=== PATIENT | male | born 1965 | race Two or more races ===

== ENCOUNTER 2022-05-27 00:07 | Inpatient (IN) | payer MEDICAID, OTHER ==
[~2022-05-27] VITALS: Ht 152.4 cm; Wt 96.0 kg
[2022-05-27 01:53] LABS: Hematocrit 43.3 % (41.0-53.0); Hemoglobin 14.7 g/dL (13.5-17.5); Mean Corpuscular Hemoglobin 33.3 pg (28.0-32.0); Mean Corpuscular Volume 98.1 fL (80.0-100.0); Red Blood Cells 4.41 10^6/uL (4.5-5.90); Red Cell Distribution Width 13.3 % (11.8-14.3); White Blood Cell 10.3 10^3/uL (4.4-10.8)
[2022-05-27 02:01] LABS: Basophils % (manual) 0 (0.0-2.0); Blast Cells 0; Metamyelocytes % 0; Myelocytes % 0; Promyelocytes % 0; Reactive Lymphocytes 0
[2022-05-27 02:10] LABS: Albumin 4.1 g/dL (3.4-5.0); Calcium 9.2 mg/dL (8.5-10.1); Potassium 3.9 mmol/L (3.5-5.1)
[2022-05-27 02:13] LABS: BUN/Creatinine Ratio 17.1; Bilirubin, Total 0.6 mg/dL (0.2-1.0); CRP High Sensitivity 0.03 mg/dL (< 0.3)
[2022-05-27] MEDS ORDERED: KETOROLAC TROMETH 60MG/2ML VIAL IM ONE (02:15)
[2022-05-27 02:47] LABS: Band Neutrophils % (manual) 17; Eosinophils % (manual) 1 (0-7); Lymphocytes % (manual) 8 (10.0-50.0); Monocytes % (manual) 2 (0-12)
[2022-05-27] MEDS ORDERED: SODIUM CHLORIDE 0.9% 1,000 ML IV ONE (03:15)
[2022-05-27 03:32] LABS: Urine Bacteria FEW /hpf (None Seen); Urine Blood TRACE /uL (Negative); Urine Mucus FEW (None Seen); Urine Specific Gravity 1.031 (1.001-1.035); Urine WBC 82 /hpf (0 - 3)
[2022-05-27 03:38] LABS: Alcohol, Urine < 3.0 mg/dL (0-10); Amphetamine Screen, Urine NEGATIVE (NEGATIVE); Barbiturate Scree,Urine NEGATIVE (NEGATIVE); Benzodiazephine Screen, Urine NEGATIVE (NEGATIVE); Cannabinoid Screen, Urine NEGATIVE (NEGATIVE); Cocaine Screen, Urine NEGATIVE (NEGATIVE); Opiate Scree,Urine NEGATIVE (NEGATIVE); Phencyclidine Screen, Urine NEGATIVE (NEGATIVE)
[2022-05-27] MEDS ORDERED: KETOROLAC TROMETH 30 MG/ML 1ML VIAL IV PRN (09:30)
[2022-05-27] MEDS ORDERED: cefTRIAXone 1GM/50ML D5W 50 ML IV ONE (09:30)
[2022-05-27] MEDS: SODIUM CHLORIDE 0.9% 1,000 ML IV SCH ×2 (09:44→18:00)
[2022-05-27] MEDS ORDERED: DEXTROSE (50%) 50ML SYRG IV PRN (10:00)
[2022-05-27 10:09] LABS: Cholesterol 108 mg/dL (< 200); HDL Cholesterol 44 mg/dL (40-59); LDL Cholesterol 47 mg/dL (< 100); Triglycerides 96 mg/dL (< 150)
[2022-05-27] MEDS: ASPirin 81 mg TAB PO SCH (10:16)
[2022-05-27] MEDS ORDERED: MANNITOL FTV 25% 12.5 GM/50 ML 50 ML IV ONE (10:45)
[2022-05-27] MEDS: ACCU-CHEK COMFORT CURVE STRIP VI SCH ×3 (11:39→22:39)
[2022-05-27] MEDS: InsuLIN REG 1unit/0.01ml Soln (100units/ml) SC SCH ×3 (11:42→22:37)
[2022-05-27] MEDS: ONDANSETRON HCL 4 MG/2 ML VIAL IV PRN (12:26)
[2022-05-27] MEDS: MORPHINE SULFATE INJ 2 MG/ml SYRG IV PRN ×2 (12:32→23:00)
[2022-05-27] MEDS ORDERED: ACETAMINOPHEN 325 MG TAB PO ONE (13:25)
[2022-05-27] MEDS ORDERED: PROMETHAZINE HCL 25 MG/ML 1ML IV ONE (13:30)
[2022-05-27] MEDS: ACETAMINOPHEN 325 MG TAB PO PRN (14:03)
[2022-05-27] MEDS ORDERED: SODIUM CHLORIDE 0.9% 2,000 ML IV ONE ×3 (18:30→18:45)
[2022-05-27 19:28] LABS: Lactic Acid w/Reflex 4.1 mmol/L (0.4-2.0)
[2022-05-27] MEDS: SOD CHL 0.45% 1,000 ML IV SCH (19:38)
[2022-05-27] MEDS ORDERED: OMEP20TA PO (20:58)
[2022-05-27] MEDS ORDERED: METF-370 PO (20:58)
[2022-05-27] MEDS ORDERED: EMPA1TAB PO (20:58)
[2022-05-27] MEDS ORDERED: CHOL20007 PO (20:58)
[2022-05-27] MEDS ORDERED: ONDA-144 PO (20:58)
[2022-05-27] MEDS ORDERED: BENZ100C97 PO (20:58)
[2022-05-27] MEDS ORDERED: ATOR40TA52 PO (20:58)
[2022-05-27] MEDS ORDERED: LISI20TA28 PO (20:58)
[2022-05-27 22:00] VITALS: BP 100/73
[2022-05-27] MEDS: ATORVASTATIN 20 MG TAB PO SCH (22:39)
[2022-05-28] VITALS (46 sets, daily range): BP systolic 83–221; BP diastolic 48–111
[2022-05-28] MEDS ORDERED: ALBUTEROL SULF 2.5 MG/0.5ML(0.5%) NEB SOLN ONE (00:11)
[2022-05-28] MEDS ORDERED: IPRATROPIUM BROM 0.5 MG/2.5ML INH SOL ONE (00:11)
[2022-05-28] MEDS: ACETAMINOPHEN 325 MG TAB PO PRN ×2 (00:18→08:28)
[2022-05-28] MEDS ORDERED: dilTIAZem 25 MG/5 ML VIAL IV ONE (00:30)
[2022-05-28] MEDS ORDERED: dilTIAZem HCL 50 MG/10 ML VIAL IV ONE (00:44)
[2022-05-28] MEDS: SOD CHL 0.45% 1,000 ML IV SCH ×2 (02:30→12:24)
[2022-05-28 06:37] LABS: Potassium 3.7 mmol/L (3.5-5.1)
[2022-05-28] MEDS: InsuLIN REG 1unit/0.01ml Soln (100units/ml) SC SCH ×3 (06:41→22:00)
[2022-05-28] MEDS: ACCU-CHEK COMFORT CURVE STRIP VI SCH ×3 (06:42→22:00)
[2022-05-28 06:43] LABS: BUN/Creatinine Ratio 15.3
[2022-05-28 06:46] LABS: Basophils # (auto) 0 10 ^3/uL (0-0.2); Basophils % (auto) 0.1 % (0.0-2.0); Eosinophils # (auto) 0.1 10 ^3/uL (0-0.8); Eosinophils % (auto) 0.5 % (0.0-7.0); Hematocrit 38.6 % (41.0-53.0); Hemoglobin 12.9 g/dL (13.5-17.5); Lymphocytes # (auto) 0.4 10 ^3/uL (0.4-5.4); Lymphocytes % (auto) 3.4 % (10.0-50.0); Mean Corpuscular Hemoglobin 32.9 pg (28.0-32.0); Mean Corpuscular Hgb Conc. 33.5 g/dL (32.0-36.0); Mean Corpuscular Volume 98.2 fL (80.0-100.0); Monocytes # (auto) 0.3 10 ^3/uL (0-1.3); Monocytes % (auto) 2.5 % (0.0-12.0); Neutrophils # (auto) 10.1 10 ^3/uL (1.6-8.6); Neutrophils % (auto) 93.5 % (37.0-80.0); Nucleated Red Blood Cells % 0.1 %; Red Blood Cells 3.93 10^6/uL (4.5-5.90); Red Cell Distribution Width 13.6 % (11.8-14.3); Total Protein 5.7 g/dL (6.4-8.2); White Blood Cell 10.8 10^3/uL (4.4-10.8)
[2022-05-28] MEDS: ASPirin 81 mg TAB PO SCH (08:28)
[2022-05-28] MEDS ORDERED: cefTRIAXone 1GM/50ML D5W 50 ML IV SCH (09:00)
[2022-05-28] MEDS ORDERED: SODIUM CHLORIDE 0.9% 1,000 ML IV ONE (10:15)
[2022-05-28] MEDS: NOREPINEPHRINE 8 MG/250ML KIT 250 ML IV SCH (11:00)
[2022-05-28 11:26] LABS: Lactic Acid w/Reflex 6.4 mmol/L (0.4-2.0)
[2022-05-28 11:47] LABS: INR 1.41 (0.9-1.15)
[2022-05-28] MEDS ORDERED: MANNITOL 20% SOLN 100 gm/500ml 200 ML IV ONE (13:15)
[2022-05-28] MEDS: ALBUMIN 25% 100 ML IV SCH ×2 (13:15→21:15)
[2022-05-28] MEDS ORDERED: SODIUM CHLORIDE 0.9% 1,000 ML IV SCH (13:15)
[2022-05-28] MEDS ORDERED: PHYTONADIONE (VIT K)10 MG/ML 1ML VIAL SUBCUT ONE (13:15)
[2022-05-28] MEDS: PIPERACILLIN-TAZOB 2.25GM 50 ML IV SCH ×2 (14:24→20:00)
[2022-05-28] MEDS ORDERED: FUROSEMIDE 40 MG/4 ML VIAL IV ONE (16:00)
[2022-05-28] MEDS ORDERED: hydrALAZINE HCL 20 MG/ML VL ONE (16:12)
[2022-05-28] MEDS ORDERED: ALBUTEROL SULF 2.5 MG/0.5ML(0.5%) NEB SOLN NEB PRN (16:15)
[2022-05-28] MEDS ORDERED: IPRATROPIUM BROM 0.5 MG/2.5ML INH SOL NEB PRN (16:15)
[2022-05-28] MEDS ORDERED: hydrALAZINE HCL 20 MG/ML VL IV PRN (16:15)
[2022-05-28] MEDS ORDERED: hydrALAZINE HCL 20 MG/ML VL IV ONE (16:15)
[2022-05-28] MEDS: MORPHINE SULFATE INJ 2 MG/ml SYRG IV PRN ×2 (16:29→22:56)
[2022-05-28] MEDS: TAMSULOSIN HYDROCHLORIDE 0.4 MG CAP PO SCH (18:00)
[2022-05-28 18:10] LABS: Lactic Acid w/Reflex 4.8 mmol/L (0.4-2.0)
[2022-05-28] MEDS ORDERED: LORazepam 2MG/ML-1ML VIAL IV PRN (20:30)
[2022-05-28] MEDS: ATORVASTATIN 20 MG TAB PO SCH (22:00)
[2022-05-29] VITALS (35 sets, daily range): BP systolic 113–157; BP diastolic 69–91
[2022-05-29] MEDS: PIPERACILLIN-TAZOB 2.25GM 50 ML IV SCH ×4 (02:00→21:19)
[2022-05-29] MEDS: ALBUMIN 25% 100 ML IV SCH (05:15)
[2022-05-29 06:00] LABS: BUN/Creatinine Ratio 15.6; Calcium 8.2 mg/dL (8.5-10.1); INR 1.11 (0.9-1.15); Partial Thromboplastin Time 40.3 sec (24.6-33.4); Potassium 3.9 mmol/L (3.5-5.1)
[2022-05-29 06:10] LABS: Lactic Acid w/Reflex 2.1 mmol/L (0.4-2.0)
[2022-05-29] MEDS: InsuLIN REG 1unit/0.01ml Soln (100units/ml) SC SCH ×4 (06:37→21:46)
[2022-05-29] MEDS: ACCU-CHEK COMFORT CURVE STRIP VI SCH ×4 (06:37→21:19)
[2022-05-29 07:51] LABS: Basophils % (auto) 0.2 % (0.0-2.0); Eosinophils % (auto) 2.2 % (0.0-7.0); Lymphocytes % (auto) 4.1 % (10.0-50.0); Monocytes % (auto) 2.7 % (0.0-12.0); Neutrophils % (auto) 90.8 % (37.0-80.0); White Blood Cell 20.1 10^3/uL (4.4-10.8)
[2022-05-29 07:52] LABS: Basophils # (auto) 0 10 ^3/uL (0-0.2); Eosinophils # (auto) 0.4 10 ^3/uL (0-0.8); Hematocrit 38.7 % (41.0-53.0); Hemoglobin 13.1 g/dL (13.5-17.5); Lymphocytes # (auto) 0.8 10 ^3/uL (0.4-5.4); Mean Corpuscular Hgb Conc. 33.8 g/dL (32.0-36.0); Mean Corpuscular Volume 97.8 fL (80.0-100.0); Monocytes # (auto) 0.5 10 ^3/uL (0-1.3); Neutrophils # (auto) 18.3 10 ^3/uL (1.6-8.6); Red Blood Cells 3.96 10^6/uL (4.5-5.90); Red Cell Distribution Width 14.1 % (11.8-14.3)
[2022-05-29] MEDS: ONDANSETRON HCL 4 MG/2 ML VIAL IV PRN (09:14)
[2022-05-29] MEDS: ASPirin 81 mg TAB PO SCH (10:00)
[2022-05-29] MEDS: SODIUM CHLORIDE 0.9% 1,000 ML IV SCH ×2 (10:51→22:30)
[2022-05-29] MEDS ORDERED: MIDAZOLAM HCL 2MG/2ML 2ml VIAL (1mg/ml) ONE (12:55)
[2022-05-29] MEDS ORDERED: fentaNYL CITRATE 100 MCG/2 ML VL ONE (12:55)
[2022-05-29] MEDS ORDERED: LIDOCAINE 2%HCL (LOCAL ANESTH.) INJ 10ml MDV ONE (12:56)
[2022-05-29] MEDS ORDERED: IOHEXOL 350 MG/ML 100ML IJ ONE (13:05)
[2022-05-29] MEDS ORDERED: IODIXANOL 320MG/ML 100ML BTL IV ONE (13:16)
[2022-05-29] MEDS: MORPHINE SULFATE INJ 2 MG/ml SYRG IV PRN ×2 (16:24→21:48)
[2022-05-29] MEDS: TAMSULOSIN HYDROCHLORIDE 0.4 MG CAP PO SCH (17:25)
[2022-05-29] MEDS: ATORVASTATIN 20 MG TAB PO SCH (21:18)
[2022-05-30] VITALS: BP 147/76
[2022-05-30] MEDS: PIPERACILLIN-TAZOB 2.25GM 50 ML IV SCH ×3 (02:00→15:50)
[2022-05-30 06:35] VITALS: BP 141/84
[2022-05-30] MEDS: NOREPINEPHRINE 8 MG/250ML KIT 250 ML IV SCH ×2 (06:40→11:00)
[2022-05-30] MEDS: ACCU-CHEK COMFORT CURVE STRIP VI SCH ×3 (06:42→18:04)
[2022-05-30 06:44] LABS: Basophils # (auto) 0.1 10 ^3/uL (0-0.2); Basophils % (auto) 0.4 % (0.0-2.0); Eosinophils # (auto) 0.1 10 ^3/uL (0-0.8); Eosinophils % (auto) 0.6 % (0.0-7.0); Hematocrit 36.6 % (41.0-53.0); Hemoglobin 12.2 g/dL (13.5-17.5); Lymphocytes # (auto) 0.7 10 ^3/uL (0.4-5.4); Mean Corpuscular Hemoglobin 32.3 pg (28.0-32.0); Mean Corpuscular Hgb Conc. 33.3 g/dL (32.0-36.0); Mean Corpuscular Volume 97.1 fL (80.0-100.0); Monocytes # (auto) 0.7 10 ^3/uL (0-1.3); Monocytes % (auto) 5.9 % (0.0-12.0); Neutrophils # (auto) 10.6 10 ^3/uL (1.6-8.6); Neutrophils % (auto) 87.1 % (37.0-80.0); Red Blood Cells 3.77 10^6/uL (4.5-5.90); Red Cell Distribution Width 14.1 % (11.8-14.3); White Blood Cell 12.2 10^3/uL (4.4-10.8)
[2022-05-30] MEDS: InsuLIN REG 1unit/0.01ml Soln (100units/ml) SC SCH ×3 (06:51→18:04)
[2022-05-30 06:57] LABS: INR 1.03 (0.9-1.15); Partial Thromboplastin Time 31.3 sec (24.6-33.4)
[2022-05-30 07:06] LABS: Albumin 2.5 g/dL (3.4-5.0); BUN/Creatinine Ratio 19.7; Calcium 8.3 mg/dL (8.5-10.1); Potassium 4.1 mmol/L (3.5-5.1)
[2022-05-30 07:08] LABS: Total Protein 6.2 g/dL (6.4-8.2)
[2022-05-30 08:00] VITALS: BP 146/80
[2022-05-30 10:00] VITALS: BP 143/80
[2022-05-30] MEDS: ASPirin 81 mg TAB PO SCH (10:00)
[2022-05-30] MEDS: SODIUM CHLORIDE 0.9% 1,000 ML IV SCH (11:08)
[2022-05-30] MEDS ORDERED: METOPROLOL TARTRATE 25 MG TAB PO ONE (11:45)
[2022-05-30] MEDS ORDERED: SODIUM CHLORIDE 0.9% 1,000 ML IV SCH (11:45)
[2022-05-30] MEDS ORDERED: HYDROcodone-ACET 5/325MG TAB PO PRN (12:45)
[2022-05-30] MEDS ORDERED: TAM04C PO (13:13)
[2022-05-30] MEDS ORDERED: CIPR500T4 PO (13:13)
[2022-05-30] MEDS ORDERED: HYDR-4902 PO (13:13)
[2022-05-30] MEDS ORDERED: MET25T PO (13:13)
[2022-05-30] MEDS ORDERED: ATOR40TA52 PO (13:13)
[2022-05-30 16:17] VITALS: BP 158/80
[2022-05-30] MEDS: TAMSULOSIN HYDROCHLORIDE 0.4 MG CAP PO SCH (18:37)
[2022-05-30] MEDS ORDERED: METOPROLOL TARTRATE 25 MG TAB PO SCH (22:00)
[2022-05-30] MEDS ORDERED: CIPROFLOXACIN HCL 500 MG TAB PO SCH (22:00)
== END 2022-05-30 18:45 | disposition home health service (06) | DRG 463 ==
LOC: ER 00:07 → TELE 09:39 → TELE-WESTW 19:49 → DOU IN ICU 05-28 10:22
PROVIDERS: ADMIT Registered Nurse; ATTEND Hospitalist
PROC: 0T9130Z Drainage of Left Kidney with Drainage Device, Percutaneous Approach (ICD-10-PCS; principal; 2022-05-29)
PROC: BT42ZZZ Ultrasonography of Left Kidney (ICD-10-PCS; 2022-05-29)
PROC: BT121ZZ Fluoroscopy of Left Kidney using Low Osmolar Contrast (ICD-10-PCS; 2022-05-29)
DX: N13.6 Pyonephrosis (principal); N17.9 Acute kidney failure, unspecified; N20.1 Calculus of ureter; E86.0 Dehydration; E11.9 Type 2 diabetes mellitus without complications; E78.5 Hyperlipidemia, unspecified; I10 Essential (primary) hypertension; E66.01 Morbid (severe) obesity due to excess calories; R31.9 Hematuria, unspecified; R80.9 Proteinuria, unspecified; Z20.822 Contact with and (suspected) exposure to COVID-19; Z86.73 Personal history of transient ischemic attack (TIA), and cerebral infarction without residual deficits; Z68.41 Body mass index [BMI] 40.0-44.9, adult; Z79.84 Long term (current) use of oral hypoglycemic drugs
CPT/HCPCS: 36415; 50430; 70450; 70551; 71045; 74176; 74425; 76775; 76942; 80048; 80053; 80061; 80307; 80320; 81001; 82962; 83036; 83605; 83690; 84484; 85007; 85025; 85027; 85610; 85730; 86141; 86850; 86900; 86901; 87040; 87077; 87086; 87088; 87186; 87205; 93005; 93306; 93886; 95819; 96361; 96365; 96367; 96372; 96375; 99152; 99153; G0378; J0696; J1815; J1885; J2001; J2250; J2405; J2543; J3430; Q9967

== ENCOUNTER 2022-06-03 11:11 | Emergency (ER) | payer MEDICAID ==
[~2022-06-03] VITALS: Ht 172.7 cm; Wt 87.3 kg
[~2022-06-03 11:11] MED LIST: ATOR40TA52 PO; BENZ100C97 PO; CHOL20007 PO; CIPR500T4 PO; EMPA1TAB PO; HYDR-4902 PO; LISI20TA28 PO; MET25T PO; METF-370 PO; OMEP20TA PO; ONDA-144 PO; TAM04C PO
[2022-06-03 15:06] LABS: Urine Bacteria NONE SEEN /hpf (None Seen); Urine Blood Negative /uL (Negative); Urine Specific Gravity 1.034 (1.001-1.035); Urine WBC 1 /hpf (0 - 3)
[2022-06-03] MEDS ORDERED: OXYCODONE W/ ACETAMINOPHEN 5/325MG TABLET PO ONE (20:45)
[2022-06-03 22:09] VITALS: BP 141/91
== END 2022-06-03 21:15 | disposition home or self-care (01) ==
LOC: ER 11:11
DX: N39.0 Urinary tract infection, site not specified (principal)
CPT/HCPCS: 74176; 81001

== ENCOUNTER 2022-07-05 00:52 | Inpatient (IN) | payer MEDICAID ==
[~2022-07-05] VITALS: Ht 152.4 cm; Wt 88.7 kg
[2022-07-05 02:41] LABS: Basophils # (auto) 0.1 10 ^3/uL (0-0.2); Basophils % (auto) 0.8 % (0.0-2.0); Eosinophils # (auto) 0.2 10 ^3/uL (0-0.8); Eosinophils % (auto) 3.2 % (0.0-7.0); Hematocrit 35.9 % (41.0-53.0); Hemoglobin 12.1 g/dL (13.5-17.5); Lymphocytes # (auto) 2.5 10 ^3/uL (0.4-5.4); Lymphocytes % (auto) 33.5 % (10.0-50.0); Mean Corpuscular Hemoglobin 32.5 pg (28.0-32.0); Mean Corpuscular Hgb Conc. 33.8 g/dL (32.0-36.0); Mean Corpuscular Volume 96.3 fL (80.0-100.0); Monocytes # (auto) 0.5 10 ^3/uL (0-1.3); Monocytes % (auto) 6.6 % (0.0-12.0); Neutrophils # (auto) 4.2 10 ^3/uL (1.6-8.6); Neutrophils % (auto) 55.9 % (37.0-80.0); Red Blood Cells 3.73 10^6/uL (4.5-5.90); Red Cell Distribution Width 14.4 % (11.8-14.3); White Blood Cell 7.6 10^3/uL (4.4-10.8)
[2022-07-05 02:57] LABS: Calcium 9.5 mg/dL (8.5-10.1); Potassium 4.2 mmol/L (3.5-5.1)
[2022-07-05 03:00] LABS: Albumin 3.5 g/dL (3.4-5.0); BUN/Creatinine Ratio 18.6; Magnesium 2.1 mg/dL (1.6-2.6)
[2022-07-05 03:03] LABS: Bilirubin, Total 0.4 mg/dL (0.2-1.0)
[2022-07-05 03:12] LABS: Urine Bacteria NONE SEEN /hpf (None Seen); Urine Blood 3+ /uL (Negative); Urine Specific Gravity 1.012 (1.001-1.035); Urine WBC 47 /hpf (0 - 3); Urine WBC Clumps PRESENT /hpf (None Seen)
[2022-07-05] MEDS ORDERED: cefTRIAXone 1GM/50ML D5W 50 ML IV ONE (07:45)
[2022-07-05] MEDS ORDERED: MORPHINE SULFATE INJ 2 MG/ml SYRG IV PRN (10:30)
[2022-07-05] MEDS ORDERED: NITROGLYCERIN 0.4 MG SL TAB SL PRN (10:30)
[2022-07-05] MEDS ORDERED: DEXTROSE (50%) 50ML SYRG IV PRN (11:00)
[2022-07-05] MEDS: SODIUM CHLORIDE 0.9% 1,000 ML IV SCH ×2 (11:02→20:30)
[2022-07-05] MEDS: InsuLIN REG 1unit/0.01ml Soln (100units/ml) SC SCH ×3 (11:30→23:26)
[2022-07-05] MEDS: ACCU-CHEK COMFORT CURVE STRIP VI SCH ×3 (12:11→22:00)
[2022-07-05] MEDS ORDERED: MIDAZOLAM HCL 2MG/2ML 2ml VIAL (1mg/ml) IV PRN (22:45)
[2022-07-06 05:26] LABS: Basophils # (auto) 0 10 ^3/uL (0-0.2); Basophils % (auto) 0.7 % (0.0-2.0); Eosinophils # (auto) 0.3 10 ^3/uL (0-0.8); Eosinophils % (auto) 4.5 % (0.0-7.0); Hematocrit 35.9 % (41.0-53.0); Lymphocytes # (auto) 1.9 10 ^3/uL (0.4-5.4); Lymphocytes % (auto) 29.1 % (10.0-50.0); Mean Corpuscular Hemoglobin 32.2 pg (28.0-32.0); Mean Corpuscular Hgb Conc. 33.5 g/dL (32.0-36.0); Monocytes # (auto) 0.4 10 ^3/uL (0-1.3); Monocytes % (auto) 5.9 % (0.0-12.0); Neutrophils # (auto) 3.9 10 ^3/uL (1.6-8.6); Neutrophils % (auto) 59.8 % (37.0-80.0); Red Blood Cells 3.74 10^6/uL (4.5-5.90); Red Cell Distribution Width 14.3 % (11.8-14.3); White Blood Cell 6.5 10^3/uL (4.4-10.8)
[2022-07-06 05:34] VITALS: BP 118/74
[2022-07-06 05:53] LABS: Albumin 3.4 g/dL (3.4-5.0); Calcium 9.2 mg/dL (8.5-10.1); Potassium 3.9 mmol/L (3.5-5.1)
[2022-07-06 05:57] LABS: BUN/Creatinine Ratio 21.8; Bilirubin, Total 0.8 mg/dL (0.2-1.0); Total Protein 7.7 g/dL (6.4-8.2)
[2022-07-06] MEDS: SODIUM CHLORIDE 0.9% 1,000 ML IV SCH ×2 (06:02→17:01)
[2022-07-06] MEDS: InsuLIN REG 1unit/0.01ml Soln (100units/ml) SC SCH ×4 (06:20→21:24)
[2022-07-06] MEDS: ACCU-CHEK COMFORT CURVE STRIP VI SCH ×4 (06:21→21:18)
[2022-07-06 09:00] VITALS: BP 121/83
[2022-07-06] MEDS: cefTRIAXone 1GM/50ML D5W 50 ML IV SCH (09:31)
[2022-07-06] MEDS: ASPirin 81 mg TAB PO SCH (09:31)
[2022-07-06] MEDS: ENOXAPARIN SOD 40 MG/0.4 ML SYRINGE SC SCH (09:31)
[2022-07-06 13:00] VITALS: BP 134/96
[2022-07-06 16:55] VITALS: BP 135/77
[2022-07-06] MEDS: ATORVASTATIN 20 MG TAB PO SCH (21:18)
[2022-07-06 22:00] VITALS: BP 121/84
[2022-07-07] MEDS: SODIUM CHLORIDE 0.9% 1,000 ML IV SCH ×2 (04:17→12:51)
[2022-07-07 05:00] VITALS: BP 95/62
[2022-07-07] MEDS: InsuLIN REG 1unit/0.01ml Soln (100units/ml) SC SCH ×4 (06:19→21:32)
[2022-07-07] MEDS: ACCU-CHEK COMFORT CURVE STRIP VI SCH ×4 (06:19→21:32)
[2022-07-07 09:00] VITALS: BP 126/83
[2022-07-07] MEDS: cefTRIAXone 1GM/50ML D5W 50 ML IV SCH (09:25)
[2022-07-07] MEDS: ENOXAPARIN SOD 40 MG/0.4 ML SYRINGE SC SCH (09:25)
[2022-07-07] MEDS: ASPirin 81 mg TAB PO SCH (09:26)
[2022-07-07] MEDS ORDERED: PNEUMOCOCCAL VACC POLYS 25 MCG/0.5 ML VIAL IM ONE (10:00)
[2022-07-07 13:00] VITALS: BP 130/77
[2022-07-07 17:00] VITALS: BP 126/77
[2022-07-07] MEDS: ATORVASTATIN 20 MG TAB PO SCH (21:32)
[2022-07-07 22:00] VITALS: BP 134/88
[2022-07-08] MEDS: SODIUM CHLORIDE 0.9% 1,000 ML IV SCH ×3 (02:10→18:30)
[2022-07-08 05:00] VITALS: BP 128/69
[2022-07-08] MEDS: InsuLIN REG 1unit/0.01ml Soln (100units/ml) SC SCH ×4 (06:04→22:01)
[2022-07-08] MEDS: ACCU-CHEK COMFORT CURVE STRIP VI SCH ×4 (06:04→21:58)
[2022-07-08 07:01] LABS: Basophils # (auto) 0 10 ^3/uL (0-0.2); Basophils % (auto) 0.5 % (0.0-2.0); Eosinophils # (auto) 0.4 10 ^3/uL (0-0.8); Eosinophils % (auto) 6.5 % (0.0-7.0); Hematocrit 36.7 % (41.0-53.0); Lymphocytes # (auto) 1.9 10 ^3/uL (0.4-5.4); Lymphocytes % (auto) 32.8 % (10.0-50.0); Mean Corpuscular Hemoglobin 31.6 pg (28.0-32.0); Mean Corpuscular Hgb Conc. 32.6 g/dL (32.0-36.0); Monocytes # (auto) 0.4 10 ^3/uL (0-1.3); Monocytes % (auto) 6.4 % (0.0-12.0); Neutrophils # (auto) 3.1 10 ^3/uL (1.6-8.6); Neutrophils % (auto) 53.8 % (37.0-80.0); Nucleated Red Blood Cells % 0.1 %; Red Blood Cells 3.78 10^6/uL (4.5-5.90); Red Cell Distribution Width 14.6 % (11.8-14.3); White Blood Cell 5.8 10^3/uL (4.4-10.8)
[2022-07-08 07:17] LABS: BUN/Creatinine Ratio 20.2; Calcium 8.9 mg/dL (8.5-10.1); Potassium 3.9 mmol/L (3.5-5.1)
[2022-07-08 09:00] VITALS: BP 119/89
[2022-07-08] MEDS: cefTRIAXone 1GM/50ML D5W 50 ML IV SCH (10:28)
[2022-07-08] MEDS: ASPirin 81 mg TAB PO SCH (10:28)
[2022-07-08] MEDS: ENOXAPARIN SOD 40 MG/0.4 ML SYRINGE SC SCH (10:28)
[2022-07-08 13:00] VITALS: BP 112/72
[2022-07-08] MEDS ORDERED: MAGNESIUM CITRATE SOLUTION 300 ML BTL PO ONE (16:30)
[2022-07-08 17:07] VITALS: BP 145/95
[2022-07-08 22:00] VITALS: BP 156/98
[2022-07-08] MEDS: ATORVASTATIN 20 MG TAB PO SCH (22:01)
[2022-07-09] MEDS: SODIUM CHLORIDE 0.9% 1,000 ML IV SCH (02:04)
[2022-07-09 05:00] VITALS: BP 107/72
[2022-07-09] MEDS: ACCU-CHEK COMFORT CURVE STRIP VI SCH ×2 (06:27→11:30)
[2022-07-09] MEDS: InsuLIN REG 1unit/0.01ml Soln (100units/ml) SC SCH ×2 (06:27→11:30)
[2022-07-09 09:00] VITALS: BP 133/88
[2022-07-09] MEDS: cefTRIAXone 1GM/50ML D5W 50 ML IV SCH (09:01)
[2022-07-09] MEDS: ENOXAPARIN SOD 40 MG/0.4 ML SYRINGE SC SCH (09:02)
[2022-07-09] MEDS: ASPirin 81 mg TAB PO SCH (09:02)
[2022-07-09 11:39] VITALS: BP 133/88
[2022-07-09] MEDS ORDERED: LACT10SO3 PO (11:52)
[2022-07-09] MEDS ORDERED: METR500T PO (11:52)
[2022-07-09] MEDS ORDERED: metroNIDAZOLE 500 MG TAB PO SCH (14:00)
== END 2022-07-09 12:40 | disposition home or self-care (01) | DRG 463 ==
LOC: ER 00:52 → TELE 10:41 → TELE-WESTW 21:55
PROVIDERS: ADMIT Registered Nurse; ATTEND Hospitalist
DX: N30.00 Acute cystitis without hematuria (principal); I13.0 Hypertensive heart and chronic kidney disease with heart failure and stage 1 through stage 4 chronic kidney disease, or unspecified chronic kidney disease; D63.8 Anemia in other chronic diseases classified elsewhere; E87.1 Hypo-osmolality and hyponatremia; I69.354 Hemiplegia and hemiparesis following cerebral infarction affecting left non-dominant side; E11.22 Type 2 diabetes mellitus with diabetic chronic kidney disease; I50.20 Unspecified systolic (congestive) heart failure; E86.0 Dehydration; K52.89 Other specified noninfective gastroenteritis and colitis; N18.2 Chronic kidney disease, stage 2 (mild); E66.01 Morbid (severe) obesity due to excess calories; E78.5 Hyperlipidemia, unspecified; N20.2 Calculus of kidney with calculus of ureter; K59.00 Constipation, unspecified; Z68.38 Body mass index [BMI] 38.0-38.9, adult; Z79.82 Long term (current) use of aspirin; Z79.84 Long term (current) use of oral hypoglycemic drugs; Z79.899 Other long term (current) drug therapy; Z87.442 Personal history of urinary calculi
CPT/HCPCS: 36415; 70450; 70551; 71045; 74018; 74176; 76775; 80048; 80053; 81001; 82962; 83735; 83880; 84484; 85025; 87086; 93005; 93886; 95819; 96365; G0378; J0696; J1815